=== PATIENT | male | born 2000 | race Two or more races ===

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

== ENCOUNTER 2023-08-27 22:05 | Inpatient (IN) | payer OTHER ==
[2023-08-27 22:53] LABS: BASOPHILS % (AUTO) 0.4 %; EOSINOPHILS # (AUTO) 0.2 10^3/uL (0.0-0.7); EOSINOPHILS % (AUTO) 1.8 %; HGB - HEMOGLOBIN 15.9 g/dL (14.0-18.0); LYMPHOCYTES # (AUTO) 2.6 10^3/uL (1.5-3.5); LYMPHOCYTES % (AUTO) 25.4 %; MEAN CORPUSCULAR HEMOGLOBIN 27.4 pg (27.0-31.0); MEAN CORPUSCULAR HGB CONC 32.4 g/dL (32.0-36.0); MEAN CORPUSCULAR VOLUME 84.5 fL (80.0-94.0); MEAN PLATELET VOLUME 10.1 fL (7.4-11.4); MONOCYTES # (AUTO) 1.1 10^3/uL (0.0-1.0); MONOCYTES % (AUTO) 10.7 %; NEUTROPHILS # (AUTO) 6.3 10^3/uL (1.5-6.6); PLT - PLATELET COUNT 253 10^3/uL (130-450); RED CELL DISTRIBUTION WIDTH 13.4 % (12.0-15.0); WHITE BLOOD COUNT 10.4 x10^3/uL (4.8-10.8)
--- NOTE | 2023-08-27 22:58 | XRAY Report ---
PROCEDURE: Chest 1V INDICATIONS: Chest pain TECHNIQUE: One view of the chest was acquired. COMPARISON: None. FINDINGS: Surgical changes and devices: None. Lungs and pleura: No pleural effusions or pneumothorax. Lungs are clear. Mediastinum: Mediastinal contours appear normal. Heart size is normal. Bones and chest wall: No suspicious bony lesions. Overlying soft tissues appear unremarkable. IMPRESSION: No acute cardiopulmonary process. Reviewed by: Fede Ho MD on 08/27/2023 10:57 PM PDT Approved by: Fede Ho MD on 08/27/2023 10:57 PM PDT Station ID: [id number]
[2023-08-27] MEDS: SODIUM CHLORIDE 0.9% 1,000 ML IV STA (22:59)
[2023-08-27] MEDS: diltiaZEM INJ 5 MG/ML VIAL IVP STA ×2 (23:03→23:36)
[2023-08-27] MEDS: diltiaZEM CD 120 MG CAPSULE PO STA (23:06)
[2023-08-27 23:23] LABS: TROPONIN I HIGH SENSITIVITY 7.5 ng/L (2.3-19.7)
[2023-08-28] LABS: ALBUMIN 4.4 g/dL (3.2-5.5); ALBUMIN/GLOBULIN RATIO 1.5 (1.0-2.2); BILIRUBIN,TOTAL 0.4 mg/dL (0.2-1.0); CALCIUM 9.8 mg/dL (8.5-10.3); CREATININE 0.9 mg/dL (0.6-1.3); TOTAL PROTEIN 7.3 g/dL (6.4-8.9)
[2023-08-28] MEDS ORDERED: METOPROLOL 5 MG/5 ML VIAL IVP ONE (00:31)
[2023-08-28] MEDS: METOPROLOL 5 MG/5 ML VIAL IVP STA (00:33)
[2023-08-28 01:29] LABS: INR 1.1 (0.8-1.2); PT - PROTHROMBIN TIME 11.6 secs (9.9-12.6)
[2023-08-28] MEDS ORDERED: diltiaZEM INJ 5 MG/ML VIAL ONE (01:47)
[2023-08-28] MEDS: APIXABAN 5 MG TABLET PO STA (01:51)
--- NOTE | 2023-08-28 02:01 | ED Physician Documentation ---
History of Present Illness - Stated complaint Stated Complaint: CHEST PRESSURE - Chief complaint Chief Complaint: Cardiac - History obtained from History obtained from: Patient - Additonal information Additional information: The patient is brought to the emergency department by his mom for chief complaint of shortness of breath for the last 3 days and palpitations today. The patient states that he thought perhaps he was just coming down with an illness when he felt the shortness of breath, but then today, he began to feel on and off as though his heart was racing. The patient thought it would just go away but after several hours, He decided to come to the ED. He denies any chest pain. He states he feels anxious right now but otherwise is okay. He states this is never happened to him before. He has no medical history whatsoever. He is not a smoker and does not use any drugs. No history of diabetes. No family history of cardiac issues at a young age. No other complaints at this time. PD PAST MEDICAL HISTORY - Past Medical History Past Medical History: No - Past Surgical History Past Surgical History: Yes HEENT: Tonsil/Adenoidectomy - Present Medications Home Medications: Ambulatory Orders Medication Instructions Recorded Confirmed diltiaZEM CD [Cardizem Cd] 240 mg PO DAILY #30 cap 08/29/23 - Allergies Allergies/Adverse Reactions: Allergies Allergy/AdvReac Type Severity Reaction Status Date / Time No Known Drug Allergies Allergy Verified 08/27/23 22:17 - Social History Does the pt smoke?: No Smoking Status: Never smoker Does the pt drink ETOH?: No Does the pt have substance abuse?: No - Immunizations Immunizations are current?: Yes - POLST Patient has POLST: No PD ED PE NORMAL - Vitals Vital signs reviewed: Yes - General General: Alert and oriented X 3, No acute distress, Well developed/nourished - HEENT HEENT: Atraumatic, EOMI, Moist mucous membranes - Neck Neck: Supple, no meningeal sign - Cardiac Cardiac: No murmur, Strong equal pulses, Other (Extremely tachycardic rate, irregularly irregular rhythm) - Respiratory Respiratory: No respiratory distress, Clear bilaterally - Abdomen Abdomen: Soft, Non tender, Non distended - Derm Derm: Normal color, Warm and dry, No rash - Extremities Extremities: No deformity, No edema, No calf tenderness / cord - Neuro Neuro: Other (Alert, grossly intact.) - Psych Psych: Normal mood, Normal affect Results - Vitals Vitals: Oxygen O2 Source Room air - EKG (time done) 2221 EKG releavant findings:: EKG personally interpreted by author of this note. Relevant findings are: Rate: Rate (enter#) (178) Rhythm: Atrial fibrillation [place]: Normal QRS: Normal Ischemia: Normal ST segments Compare to prior EKG: Old EKG unavailable Computer interpretation: Agree with computer - Labs Labs: Laboratory Tests 08/27/23 08/27/23 08/27/23 22:36 22:36 22:36 WBC 10.4 RBC 5.80 Hgb 15.9 Hct 49.0 MCV 84.5 MCH 27.4 MCHC 32.4 RDW 13.4 Plt Count 253 MPV 10.1 Neut # (Auto) 6.3 Lymph # (Auto) 2.6 [place] # (Auto) 1.1 H Eos # (Auto) 0.2 Baso # (Auto) 0.0 Absolute Nucleated RBC 0.00 Nucleated RBC % 0.0 PT INR Sodium 138 Potassium 4.0 Chloride 103 Carbon Dioxide 25 Anion Gap 10.0 BUN 10 Creatinine 0.9 Estimated GFR (MDRD) 106 Glucose 113 H Calcium 9.8 Total Bilirubin 0.4 AST 65 H ALT 179 H Alkaline Phosphatase 51 Troponin I High Sens 7.5 Total Protein 7.3 Albumin 4.4 Globulin 2.9 Albumin/Globulin Ratio 1.5 Lipase 12 TSH Hepatitis A IgM Ab Negative Hep Bs Antigen Negative Hep B Core IgM Ab Negative Hepatitis C Antibody Non Reactive Hepatitis C Interp Comment 08/28/23 08/28/23 01:14 01:14 WBC RBC Hgb Hct MCV MCH MCHC RDW Plt Count MPV Neut # (Auto) Lymph # (Auto) [place] # (Auto) Eos # (Auto) Baso # (Auto) Absolute Nucleated RBC Nucleated RBC % PT 11.6 INR 1.1 Sodium Potassium Chloride Carbon Dioxide Anion Gap BUN Creatinine Estimated GFR (MDRD) Glucose Calcium Total Bilirubin AST ALT Alkaline Phosphatase Troponin I High Sens Total Protein Albumin Globulin Albumin/Globulin Ratio Lipase TSH 2.49 Hepatitis A IgM Ab Hep Bs Antigen Hep B Core IgM Ab Hepatitis C Antibody Hepatitis C Interp PD Medical Decision Making - ED course Complexity details: reviewed results, re-evaluated patient, considered differential, d/w patient, d/w family, d/w workers compensation consultant (Dr. Lenz, cardiology, [facility]) ED course: The patient was immediately treated with Cardizem 25 mg IV which did bring his rate down into the 110's. Laboratory studies were unremarkable. EKG had shown atrial fibrillation with rapid ventricular response which was consistent with the monitor tracing which also had the appearance of A-fib with RVR. After an initial drop in heart rate, the patient's heart rate did begin to creep back up into the 150s to 160s. He was given a second dose of Cardizem 20 mg IV and had also been given an oral dose of 120 mg p.o. long-acting. The patient again had a drop in heart rate into the 110's but still did not convert to normal sinus rhythm. The patient was then given IV metoprolol 15 mg which still did not convert him to normal sinus rhythm. His heart rate did come down once again into the 130s but began to creep up again. I spoke with Dr. Enrique Lenz, survey crew chief at [facility]. The patient had had palpitations for the last several hours with fairly distinct onset but had also been having some vague shortness of breath for the last few days prior. He really had not had any other symptoms of illness and the Patient had been quite a bit harder to rate control than expected. Furthermore, he had not spontaneously converted despite slowing the rate down at least temporarily. In light of all this, Dr. Lenz recommended holding off on cardioversion and treating with medications to see if the patient would convert on his own or at least if we could rate control. He also recommended Eliquis. He stated that there is no reason to transfer the patient and that any concern over his age and why he is developed atrial fibrillation could be explored in follow-up with cardiology. He stated that otherwise, we should proceed as we would proceed with any older patient with A-fib with RVR. I discussed with the patient that and his mother that we would be starting a diltiazem drip and admitting to the hospital. He was agreeable to this plan. I spoke with Dr. Guerrero who is on-call for hospitalist service and she was agreeable to admission. - Critical Care Time(min): 40 Comments: Critical care time was necessary, secondary to high probability of imminent and life-threatening decline, secondary to extreme tachycardia in the setting of atrial fibrillation with rapid ventricular response, refractory to treatment. Time Includes: Direct patient care, Review records, Reassess patient, Document care, Coordinate care, Medical consult, Family consult for tx dec, See progress note Data interpretation: Labs, Pulse ox, CXR, Cardiac output, See progress note Departure - Departure Disposition: 66 [facility] DC/Xfer Clinical Impression: Atrial fibrillation with RVR Condition: Fair Discharge Date/Time: 08/28/23 02:50
[2023-08-28] MEDS: diltiaZEM INJ 125 MG in DEXTROSE 5% 100 ML IV STA (02:04)
--- NOTE | 2023-08-28 02:11 | HISTORY & PHYSICAL EXAMINATION ---
Chief Complaint - Chief Complaint Chief Complaint: Shortness of breath History of Present Illness - Admitted From Admitted From:: ER - History Obtained From Records Reviewed: Yes History obtained from: Pt, staff, chart Exam Limitations: Virtual exam - History of Present Illness HPI Comment/Other: H&P was conducted via video remotely, using Access Cart. Patient is in ID. Physician is in ID. No one is at bedside. 23 yo M with no PMH presented to the ER with c/o 1 day h/o Palpitations. Pt had Appendectomy 5 weeks ago; no complications. No abdo pain now; eating well. Pt has had cough, Shortness of breath x 1 day. No coryza, chest congestion, sputum, F/C. He said that it feels like a cold. Today, he began to have palpitations; it felt like his heart was beating out of his chest, so he came to the ER. No CP. No Dizziness. Pt has never had symptoms like this before. No known cardiac history in Family. In the ER, HR 220-137, AST 65, ALT 179 EKG: not in chart; ER Provider reports AFib with RVR at 178 bpm CXR:NAD Pt was given Diltiazem PO and IV, Metoprolol IV, rate came down but then increased again. Diltiazem drip ordered. ER Provider D/W [facility] Dr. Lenz at , who recommended rate control, anticoag for 3 wks, then f/u for cardioversion with Cardiology. Does not feel pt needs transfer, and can be treated like any a. fib with RVR. History - Past Medical History MRSA Hx?: No - Past Surgical History General: reports: Appendectomy HEENT: reports: Tonsil/Adenoidectomy - POLST Patient has POLST: No Meds/Allgy - Home Medications Home Medications: Ambulatory Orders Medication Instructions Recorded Confirmed No Known Home Medications 08/27/23 08/27/23 - Allergies Allergies/Adverse Reactions: Allergies Allergy/AdvReac Type Severity Reaction Status Date / Time No Known Drug Allergies Allergy Verified 08/27/23 22:17 Review of Systems - All Other Systems All Other Systems: reports: Reviewed and negative Exam - Vital Signs Reviewed Vital Signs: Yes Vital Signs: Vital Signs x48h Temp Pulse Resp BP Pulse Ox 08/28/23 01:42 155 H 18 111/52 L 99 08/28/23 01:27 139 H 22 114/66 97 08/28/23 01:12 135 H 18 111/59 L 99 08/28/23 01:05 140 H 18 108/85 H 96 08/28/23 01:00 137 H 20 110/64 96 08/28/23 00:32 140 H 14 119/64 99 08/28/23 00:23 140 H 18 120/79 100 08/28/23 00:07 121 H 20 129/83 H 98 08/27/23 23:52 114 H 16 114/82 H 96 08/27/23 23:47 122 H 14 119/71 96 08/27/23 23:41 115 H 14 147/84 H 97 08/27/23 23:35 169 H 22 128/94 H 99 08/27/23 23:22 107 H 17 114/71 99 08/27/23 23:17 96 16 109/61 97 08/27/23 23:11 117 H 16 115/58 L 97 08/27/23 22:41 160 H 22 118/82 H 98 08/27/23 22:17 36.5 C 62 16 128/89 H 100 - Physical Exam General Appearance: positive: No acute distress, Alert Eyes Bilateral: positive: EOMI, No scleral icterus ENT: positive: Other (Moist mucous membranes) Respiratory: positive: Other (Access cart stethoscope not working; per ER Provider: CTA B/L) Cardiovascular: positive: Other (Access cart stethoscope not working; per ER Provider: +tachycardic rate, irregularly irregular rhythm) Abdomen: positive: Other (per ER Provider: non-distended, NT, Soft) Extremities: positive: Other (per ER Provider: moves all extrem, no edema) Neurologic/Psychiatric: positive: Oriented x3, Mood/affect nml, Other (per ER Provider: NFD) Conclusion/Plan - Problem List (1) Atrial fibrillation with RVR Conclusion/Plan: Atrial Fibrillation with RVR Shortness of breath Palpitations -HR 220-137 -EKG: not in chart; ER Provider reports AFib with RVR at 178 bpm -CXR:NAD -Pt was given Diltiazem PO and IV, Metoprolol IV, rate came down but then increased again. Diltiazem drip ordered. -ER Provider D/W [facility] Dr. Lenz at , who recommended rate control, anticoag for 3 wks, then f/u for cardioversion with Cardiology. Does not feel pt needs transfer, and can be treated like any a. fib with RVR. -admit to ICU -continue Diltiazem drip titration -Eliquis 5 mg PO BID -telemetry -trend Trop -check TSH -Echo ordered -outpt F/u with [employer] Cough -Resp viral PCR test ordered -Brian Can PRN Elevated LFTs -AST 65, ALT 179 -acute Hepatitis panel ordered -U/S Liver ordered VTE Prophylaxis: on Eliquis Code Status: Full Code ~Jasmyn Guerrero MD Hospitalist - Lab Results Lab results reviewed: Yes Fish Bones: 08/27/23 22:36 08/27/23 22:36
[2023-08-28] MEDS ORDERED: SODIUM CHLORIDE FLUSH 0.9% 10 ML SYRINGE IVP PRN (02:13)
[2023-08-28] MEDS ORDERED: ONDANSETRON 4 MG/2 ML VIAL IVP PRN (02:13)
[2023-08-28] MEDS ORDERED: ONDANSETRON ODT 4 MG TABLET TL PRN (02:13)
[2023-08-28] MEDS ORDERED: ACETAMINOPHEN 325 MG TABLET PO PRN (02:13)
[2023-08-28] MEDS ORDERED: BENZONATATE 100 MG CAPSULE PO PRN (02:34)
[2023-08-28 03:31] LABS: BASOPHILS % (AUTO) 0.3 %; EOSINOPHILS # (AUTO) 0.1 10^3/uL (0.0-0.7); EOSINOPHILS % (AUTO) 1.3 %; HCT - HEMATOCRIT 47.8 % (42.0-52.0); LYMPHOCYTES # (AUTO) 2.5 10^3/uL (1.5-3.5); LYMPHOCYTES % (AUTO) 26.1 %; MEAN CORPUSCULAR HEMOGLOBIN 26.4 pg (27.0-31.0); MEAN CORPUSCULAR HGB CONC 31.4 g/dL (32.0-36.0); MEAN CORPUSCULAR VOLUME 84.2 fL (80.0-94.0); MEAN PLATELET VOLUME 10.3 fL (7.4-11.4); MONOCYTES # (AUTO) 0.8 10^3/uL (0.0-1.0); MONOCYTES % (AUTO) 8.6 %; NEUTROPHILS # (AUTO) 5.9 10^3/uL (1.5-6.6); PLT - PLATELET COUNT 273 10^3/uL (130-450); RED BLOOD COUNT 5.68 10^6/uL (4.70-6.10); RED CELL DISTRIBUTION WIDTH 13.4 % (12.0-15.0); WHITE BLOOD COUNT 9.4 x10^3/uL (4.8-10.8)
[2023-08-28 04:21] LABS: B. PARAPERTUSSIS- RESP PCR PAN NOT DETECTED; B. PERTUSSIS- RESP PCR PANEL NOT DETECTED; C. PNEUMONIAE- RESP PCR PANEL NOT DETECTED; CORONAVIRUS 229E-RESP PCR NOT DETECTED; CORONAVIRUS HKU1-RESP PCR NOT DETECTED; CORONAVIRUS NL63-RESP PCR NOT DETECTED; CORONAVIRUS OC43-RESP PCR NOT DETECTED; HUMAN METAPNEUMOVIRUS NOT DETECTED; INFLUENZA A- RESP PCR PANEL NOT DETECTED; INFLUENZA B - RESP PCR PANEL NOT DETECTED; M. PNEUMONIAE- RESP PCR PANEL NOT DETECTED; PARAINFLUENZA VIRUS 1 NOT DETECTED; PARAINFLUENZA VIRUS 2 NOT DETECTED; PARAINFLUENZA VIRUS 3 DETECTED; PARAINFLUENZA VIRUS 4 NOT DETECTED; RHINOVIRUS/ENTEROVIRUS NOT DETECTED; RSV- RESP PCR PANEL NOT DETECTED; SARS-CoV-2 -RESP PCR PANEL NOT DETECTED
[2023-08-28 04:31] LABS: ALBUMIN 3.9 g/dL (3.2-5.5); ALBUMIN/GLOBULIN RATIO 1.4 (1.0-2.2); BILIRUBIN,TOTAL 0.4 mg/dL (0.2-1.0); CALCIUM 9.2 mg/dL (8.5-10.3); CREATININE 0.8 mg/dL (0.6-1.3); POTASSIUM 3.9 mmol/L (3.5-4.5); TOTAL PROTEIN 6.6 g/dL (6.4-8.9)
[2023-08-28 05:03] LABS: THYROID STIMULATING HORMONE 2.94 uIU/mL (0.34-5.60)
[2023-08-28] MEDS: POTASSIUM CHLORIDE 20 MEQ TABLET PO ONE (05:35)
--- NOTE | 2023-08-28 08:00 | PROVIDER PROGRESS NOTE ---
Subjective - Prog Note Date Prog Note Date: 08/28/23 Prog Note Time: 08:00 Current Medications - Current Medications Current Medications: Acetaminophen (Acetaminophen 325 Mg Tablet) 650 mg PO Q4HR PRN PRN Reason: Pain 1 to 4, or Fever Apixaban (Apixaban 5 Mg Tablet) 5 mg PO BID MANUELA Benzonatate (Benzonatate 100 Mg Capsule) 100 mg PO Q8H PRN PRN Reason: Cough Diltiazem HCl 125 mg/ Dextrose 125 mls @ 10 mls/hr IV TITR STA; Protocol Stop: 08/28/23 14:00 Last Titration: 08/28/23 07:05 Dose: 5 mg/hr, 5 mls/hr Ondansetron HCl (Ondansetron Odt 4 Mg Tablet) 4 mg TL Q6HR PRN PRN Reason: Nausea / Vomiting Ondansetron HCl (Ondansetron 4 Mg/2 Ml Vial) 4 mg IVP Q6HR PRN PRN Reason: Nausea / Vomiting Sodium Chloride (Sodium Chloride Flush 0.9% 10 Ml Syringe) 10 ml IVP 0100,0900,1700 MANUELA Sodium Chloride (Sodium Chloride Flush 0.9% 10 Ml Syringe) 10 ml IVP PRN PRN PRN Reason: NEEDED PER PROVIDER ORDERS Objective - Vital Signs/Intake & Output Reviewed Vital Signs: Yes Vital Signs: Vital Signs x48h Temp Pulse Pulse Resp BP BP Pulse Ox 08/28/23 07:00 36.6 C 81 17 91/62 96 08/28/23 06:00 36.7 C 97 17 82/43 L 98 08/28/23 05:00 89 20 94/46 L 96 08/28/23 04:00 118 H 20 125/66 96 08/28/23 03:00 121 H 20 109/66 95 08/28/23 02:30 148 H 14 124/80 97 08/28/23 02:20 137 H 23 96 08/28/23 02:09 147 H 20 114/88 H 97 08/28/23 01:42 155 H 18 111/52 L 99 08/28/23 01:27 139 H 22 114/66 97 08/28/23 01:12 135 H 18 111/59 L 99 08/28/23 01:05 140 H 18 108/85 H 96 05/20/24 01:00 137 H 20 110/64 96 08/28/23 00:32 140 H 14 119/64 99 08/28/23 00:23 140 H 18 120/79 100 08/28/23 00:07 121 H 20 129/83 H 98 Intake & Output: Intake & Output 08/25/23 08/26/23 08/27/23 08/28/23 23:59 23:59 23:59 23:59 Intake Total 1185.333 Output Total 525 Balance -525 1185.333 - Lab Results Fish Bones: 08/28/23 03:15 08/28/23 03:15 Other Labs: Lab Results x24hrs 08/28/23 08/28/23 08/28/23 Range/Units 03:15 03:15 03:15 WBC 9.4 (4.8-10.8) x10^3/uL RBC 5.68 (4.70-6.10) 10^6/uL Hgb 15.0 (14.0-18.0) g/dL Hct 47.8 (42.0-52.0) % MCV 84.2 (80.0-94.0) fL MCH 26.4 L (27.0-31.0) pg MCHC 31.4 L (32.0-36.0) g/dL RDW 13.4 (12.0-15.0) % Plt Count 273 (130-450) 10^3/uL MPV 10.3 (7.4-11.4) fL Neut # (Auto) 5.9 (1.5-6.6) 10^3/uL Lymph # (Auto) 2.5 (1.5-3.5) 10^3/uL [place] # (Auto) 0.8 (0.0-1.0) 10^3/uL Eos # (Auto) 0.1 (0.0-0.7) 10^3/uL Baso # (Auto) 0.0 (0.0-0.1) 10^3/uL Absolute Nucleated RBC 0.00 x10^3/uL Nucleated RBC % 0.0 /100WBC PT (9.9-12.6) secs INR (0.8-1.2) Sodium 137 (135-145) mmol/L Potassium 3.9 (3.5-4.5) mmol/L Chloride 105 (101-111) mmol/L Carbon Dioxide 24 (21-32) mmol/L Anion Gap 8.0 (6-13) BUN 9 (6-20) mg/dL Creatinine 0.8 (0.6-1.3) mg/dL Estimated GFR (MDRD) 121 (>89) Glucose 100 (74-104) mg/dL Calcium 9.2 (8.5-10.3) mg/dL Magnesium 2.0 (1.7-2.3) mg/dL Total Bilirubin 0.4 (0.2-1.0) mg/dL AST 52 H (10-42) IU/L ALT 157 H (10-60) IU/L Alkaline Phosphatase 45 (42-121) IU/L Troponin I High Sens 6.8 (2.3-19.7) ng/L Total Protein 6.6 (6.4-8.9) g/dL Albumin 3.9 (3.2-5.5) g/dL Globulin 2.7 (2.1-4.2) g/dL Albumin/Globulin Ratio 1.4 (1.0-2.2) Lipase (11-82) U/L TSH 2.94 (0.34-5.60) uIU/mL Nasal Adenovirus (PCR) Nasal B. parapertussis DNA (PCR) Nasal Coronavir 229E PCR Nasal Coronavir HKU1 PCR Nasal Coronavir NL63 PCR Nasal Coronavir OC43 PCR Nasal Enterovir/Rhinovir PCR Nasal Influenza B PCR Nasal Influenza A PCR Nasal Parainfluen 1 PCR Nasal Parainfluen 2 PCR Nasal Parainfluen 3 PCR Nasal Parainfluen 4 PCR Nasal RSV (PCR) Nasal Screen MRSA (PCR) (NEGATIVE) Nasal B.pertussis DNA PCR Nasal C.pneumoniae (PCR) Chandan Human Metapneumo PCR Nasal M.pneumoniae (PCR) Nasal SARS-CoV-2 (PCR) 08/28/23 08/28/23 08/28/23 Range/Units 03:00 02:24 01:14 WBC (4.8-10.8) x10^3/uL RBC (4.70-6.10) 10^6/uL Hgb (14.0-18.0) g/dL Hct (42.0-52.0) % MCV (80.0-94.0) fL MCH (27.0-31.0) pg MCHC (32.0-36.0) g/dL RDW (12.0-15.0) % Plt Count (130-450) 10^3/uL MPV (7.4-11.4) fL Neut # (Auto) (1.5-6.6) 10^3/uL Lymph # (Auto) (1.5-3.5) 10^3/uL [place] # (Auto) (0.0-1.0) 10^3/uL Eos # (Auto) (0.0-0.7) 10^3/uL Baso # (Auto) (0.0-0.1) 10^3/uL Absolute Nucleated RBC x10^3/uL Nucleated RBC % /100WBC PT (9.9-12.6) secs INR (0.8-1.2) Sodium (135-145) mmol/L Potassium (3.5-4.5) mmol/L Chloride (101-111) mmol/L Carbon Dioxide (21-32) mmol/L Anion Gap (6-13) BUN (6-20) mg/dL Creatinine (0.6-1.3) mg/dL Estimated GFR (MDRD) (>89) Glucose (74-104) mg/dL Calcium (8.5-10.3) mg/dL Magnesium (1.7-2.3) mg/dL Total Bilirubin (0.2-1.0) mg/dL AST (10-42) IU/L ALT (10-60) IU/L Alkaline Phosphatase (42-121) IU/L Troponin I High Sens (2.3-19.7) ng/L Total Protein (6.4-8.9) g/dL Albumin (3.2-5.5) g/dL Globulin (2.1-4.2) g/dL Albumin/Globulin Ratio (1.0-2.2) Lipase (11-82) U/L TSH 2.49 (0.34-5.60) uIU/mL Nasal Adenovirus (PCR) NOT DETECTED Nasal B. parapertussis DNA (PCR) NOT DETECTED Nasal Coronavir 229E PCR NOT DETECTED Nasal Coronavir HKU1 PCR NOT DETECTED Nasal Coronavir NL63 PCR NOT DETECTED Nasal Coronavir OC43 PCR NOT DETECTED Nasal Enterovir/Rhinovir PCR NOT DETECTED Nasal Influenza B PCR NOT DETECTED Nasal Influenza A PCR NOT DETECTED Nasal Parainfluen 1 PCR NOT DETECTED Nasal Parainfluen 2 PCR NOT DETECTED Nasal Parainfluen 3 PCR DETECTED A Nasal Parainfluen 4 PCR NOT DETECTED Nasal RSV (PCR) NOT DETECTED Nasal Screen MRSA (PCR) NEGATIVE (NEGATIVE) Nasal B.pertussis DNA PCR NOT DETECTED Nasal C.pneumoniae (PCR) NOT DETECTED Chandan Human Metapneumo PCR NOT DETECTED Nasal M.pneumoniae (PCR) NOT DETECTED Nasal SARS-CoV-2 (PCR) NOT DETECTED 08/28/23 08/27/23 08/27/23 Range/Units 01:14 22:36 22:36 WBC 10.4 (4.8-10.8) x10^3/uL RBC 5.80 (4.70-6.10) 10^6/uL Hgb 15.9 (14.0-18.0) g/dL Hct 49.0 (42.0-52.0) % MCV 84.5 (80.0-94.0) fL MCH 27.4 (27.0-31.0) pg MCHC 32.4 (32.0-36.0) g/dL RDW 13.4 (12.0-15.0) % Plt Count 253 (130-450) 10^3/uL MPV 10.1 (7.4-11.4) fL Neut # (Auto) 6.3 (1.5-6.6) 10^3/uL Lymph # (Auto) 2.6 (1.5-3.5) 10^3/uL [place] # (Auto) 1.1 H (0.0-1.0) 10^3/uL Eos # (Auto) 0.2 (0.0-0.7) 10^3/uL Baso # (Auto) 0.0 (0.0-0.1) 10^3/uL Absolute Nucleated RBC 0.00 x10^3/uL Nucleated RBC % 0.0 /100WBC PT 11.6 (9.9-12.6) secs INR 1.1 (0.8-1.2) Sodium 138 (135-145) mmol/L Potassium 4.0 (3.5-4.5) mmol/L Chloride 103 (101-111) mmol/L Carbon Dioxide 25 (21-32) mmol/L Anion Gap 10.0 (6-13) BUN 10 (6-20) mg/dL Creatinine 0.9 (0.6-1.3) mg/dL Estimated GFR (MDRD) 106 (>89) Glucose 113 H (74-104) mg/dL Calcium 9.8 (8.5-10.3) mg/dL Magnesium (1.7-2.3) mg/dL Total Bilirubin 0.4 (0.2-1.0) mg/dL AST 65 H (10-42) IU/L ALT 179 H (10-60) IU/L Alkaline Phosphatase 51 (42-121) IU/L Troponin I High Sens 7.5 (2.3-19.7) ng/L Total Protein 7.3 (6.4-8.9) g/dL Albumin 4.4 (3.2-5.5) g/dL Globulin 2.9 (2.1-4.2) g/dL Albumin/Globulin Ratio 1.5 (1.0-2.2) Lipase 12 (11-82) U/L TSH (0.34-5.60) uIU/mL Nasal Adenovirus (PCR) Nasal B. parapertussis DNA (PCR) Nasal Coronavir 229E PCR Nasal Coronavir HKU1 PCR Nasal Coronavir NL63 PCR Nasal Coronavir OC43 PCR Nasal Enterovir/Rhinovir PCR Nasal Influenza B PCR Nasal Influenza A PCR Nasal Parainfluen 1 PCR Nasal Parainfluen 2 PCR Nasal Parainfluen 3 PCR Nasal Parainfluen 4 PCR Nasal RSV (PCR) Nasal Screen MRSA (PCR) (NEGATIVE) Nasal B.pertussis DNA PCR Nasal C.pneumoniae (PCR) Chandan Human Metapneumo PCR Nasal M.pneumoniae (PCR) Nasal SARS-CoV-2 (PCR) ABX Reporting Has patient been on IV antibiotics over the past 48 hours?: No Sepsis Event Note (H) - Evaluation Current Stage of Sepsis: Ruled out
--- NOTE | 2023-08-28 08:01 | PROVIDER PROGRESS NOTE ---
Subjective - Prog Note Date Prog Note Date: 08/28/23 Prog Note Time: 08:01 - Subjective Subjective: Patient remains on Cardizem drip since admission though the rate had to be decreased due to mild hypotension. The patient himself feels improved this morn ing with less palpitations. Yesterday he also had dyspnea which has resolved at this point. He denies having any chest pain, pleurisy, orthopnea, PND. Has a rare occasional cough that is nonproductive and has some mild rhinorrhea, with his viral panel returned positive for parainfluenza. He denies any alcohol use or illicit drug use. No history of previous episodes of palpitations and no family history of these issues as well. Current Medications - Current Medications Current Medications: Acetaminophen (Acetaminophen 325 Mg Tablet) 650 mg PO Q4HR PRN PRN Reason: Pain 1 to 4, or Fever Apixaban (Apixaban 5 Mg Tablet) 5 mg PO BID MANUELA Benzonatate (Benzonatate 100 Mg Capsule) 100 mg PO Q8H PRN PRN Reason: Cough Diltiazem HCl 125 mg/ Dextrose 125 mls @ 10 mls/hr IV TITR STA; Protocol Stop: 08/28/23 14:00 Last Titration: 08/28/23 07:05 Dose: 5 mg/hr, 5 mls/hr Ondansetron HCl (Ondansetron Odt 4 Mg Tablet) 4 mg TL Q6HR PRN PRN Reason: Nausea / Vomiting Ondansetron HCl (Ondansetron 4 Mg/2 Ml Vial) 4 mg IVP Q6HR PRN PRN Reason: Nausea / Vomiting Sodium Chloride (Sodium Chloride Flush 0.9% 10 Ml Syringe) 10 ml IVP 0100,0900,1700 MANUELA Sodium Chloride (Sodium Chloride Flush 0.9% 10 Ml Syringe) 10 ml IVP PRN PRN PRN Reason: NEEDED PER PROVIDER ORDERS Objective - Vital Signs/Intake & Output Reviewed Vital Signs: Yes Vital Signs: Vital Signs Temp Pulse Resp BP Pulse Ox 08/28/23 07:00 36.6 C 81 17 91/62 96 08/28/23 06:00 36.7 C 97 17 82/43 L 98 08/28/23 05:00 89 20 94/46 L 96 Intake & Output: Intake & Output 05/17/08/26/23 08/27/23 08/28/23 23:59 23:59 23:59 23:59 Intake Total 1185.333 Output Total 525 Balance -525 1185.333 - Objective General Appearance: positive: No acute distress, Alert, Mild distress, Other (Obese) Eyes Bilateral: positive: Normal inspection, PERRL, EOMI ENT: positive: ENT inspection nml, No signs of dehydration Neck: positive: Nml inspection, Thyroid nml, No JVD, Trachea midline Respiratory: positive: No respiratory distress, Breath sounds nml. negative: Wheezes, Rales, Rhonchi Cardiovascular: positive: No murmur, No gallop, Irregularly irregular, Tachycardia Peripheral Pulses: 2+ Dorsalis pedis (R), 2+ Dorsalis pedis (L) Abdomen: positive: Non-tender, No organomegaly, Nml bowel sounds, Other (Obese abdomen, but no obvious distension) Skin: positive: Color nml, No rash, Warm, Dry Extremities: positive: Non-tender, Nml appearance, No pedal edema Neurologic/Psychiatric: positive: Oriented x3, CN's nml (2-12), Motor nml - Lab Results Fish Bones: 08/28/23 03:15 08/28/23 03:15 Other Labs: Lab Results x24hrs 08/28/23 08/28/23 08/28/23 Range/Units 03:15 03:15 03:15 WBC 9.4 (4.8-10.8) x10^3/uL RBC 5.68 (4.70-6.10) 10^6/uL Hgb 15.0 (14.0-18.0) g/dL Hct 47.8 (42.0-52.0) % MCV 84.2 (80.0-94.0) fL MCH 26.4 L (27.0-31.0) pg MCHC 31.4 L (32.0-36.0) g/dL RDW 13.4 (12.0-15.0) % Plt Count 273 (130-450) 10^3/uL MPV 10.3 (7.4-11.4) fL Neut # (Auto) 5.9 (1.5-6.6) 10^3/uL Lymph # (Auto) 2.5 (1.5-3.5) 10^3/uL [place] # (Auto) 0.8 (0.0-1.0) 10^3/uL Eos # (Auto) 0.1 (0.0-0.7) 10^3/uL Baso # (Auto) 0.0 (0.0-0.1) 10^3/uL Absolute Nucleated RBC 0.00 x10^3/uL Nucleated RBC % 0.0 /100WBC PT (9.9-12.6) secs INR (0.8-1.2) Sodium 137 (135-145) mmol/L Potassium 3.9 (3.5-4.5) mmol/L Chloride 105 (101-111) mmol/L Carbon Dioxide 24 (21-32) mmol/L Anion Gap 8.0 (6-13) BUN 9 (6-20) mg/dL Creatinine 0.8 (0.6-1.3) mg/dL Estimated GFR (MDRD) 121 (>89) Glucose 100 (74-104) mg/dL Calcium 9.2 (8.5-10.3) mg/dL Magnesium 2.0 (1.7-2.3) mg/dL Total Bilirubin 0.4 (0.2-1.0) mg/dL AST 52 H (10-42) IU/L ALT 157 H (10-60) IU/L Alkaline Phosphatase 45 (42-121) IU/L Troponin I High Sens 6.8 (2.3-19.7) ng/L Total Protein 6.6 (6.4-8.9) g/dL Albumin 3.9 (3.2-5.5) g/dL Globulin 2.7 (2.1-4.2) g/dL Albumin/Globulin Ratio 1.4 (1.0-2.2) Lipase (11-82) U/L TSH 2.94 (0.34-5.60) uIU/mL Nasal Adenovirus (PCR) Nasal B. parapertussis DNA (PCR) Nasal Coronavir 229E PCR Nasal Coronavir HKU1 PCR Nasal Coronavir NL63 PCR Nasal Coronavir OC43 PCR Nasal Enterovir/Rhinovir PCR Nasal Influenza B PCR Nasal Influenza A PCR Nasal Parainfluen 1 PCR Nasal Parainfluen 2 PCR Nasal Parainfluen 3 PCR Nasal Parainfluen 4 PCR Nasal RSV (PCR) Nasal Screen MRSA (PCR) (NEGATIVE) Nasal B.pertussis DNA PCR Nasal C.pneumoniae (PCR) Chandan Human Metapneumo PCR Nasal M.pneumoniae (PCR) Nasal SARS-CoV-2 (PCR) 08/28/23 08/28/23 08/28/23 Range/Units 03:00 02:24 01:14 WBC (4.8-10.8) x10^3/uL RBC (4.70-6.10) 10^6/uL Hgb (14.0-18.0) g/dL Hct (42.0-52.0) % MCV (80.0-94.0) fL MCH (27.0-31.0) pg MCHC (32.0-36.0) g/dL RDW (12.0-15.0) % Plt Count (130-450) 10^3/uL MPV (7.4-11.4) fL Neut # (Auto) (1.5-6.6) 10^3/uL Lymph # (Auto) (1.5-3.5) 10^3/uL [place] # (Auto) (0.0-1.0) 10^3/uL Eos # (Auto) (0.0-0.7) 10^3/uL Baso # (Auto) (0.0-0.1) 10^3/uL Absolute Nucleated RBC x10^3/uL Nucleated RBC % /100WBC PT (9.9-12.6) secs INR (0.8-1.2) Sodium (135-145) mmol/L Potassium (3.5-4.5) mmol/L Chloride (101-111) mmol/L Carbon Dioxide (21-32) mmol/L Anion Gap (6-13) BUN (6-20) mg/dL Creatinine (0.6-1.3) mg/dL Estimated GFR (MDRD) (>89) Glucose (74-104) mg/dL Calcium (8.5-10.3) mg/dL Magnesium (1.7-2.3) mg/dL Total Bilirubin (0.2-1.0) mg/dL AST (10-42) IU/L ALT (10-60) IU/L Alkaline Phosphatase (42-121) IU/L Troponin I High Sens (2.3-19.7) ng/L Total Protein (6.4-8.9) g/dL Albumin (3.2-5.5) g/dL Globulin (2.1-4.2) g/dL Albumin/Globulin Ratio (1.0-2.2) Lipase (11-82) U/L TSH 2.49 (0.34-5.60) uIU/mL Nasal Adenovirus (PCR) NOT DETECTED Nasal B. parapertussis DNA (PCR) NOT DETECTED Nasal Coronavir 229E PCR NOT DETECTED Nasal Coronavir HKU1 PCR NOT DETECTED Nasal Coronavir NL63 PCR NOT DETECTED Nasal Coronavir OC43 PCR NOT DETECTED Nasal Enterovir/Rhinovir PCR NOT DETECTED Nasal Influenza B PCR NOT DETECTED Nasal Influenza A PCR NOT DETECTED Nasal Parainfluen 1 PCR NOT DETECTED Nasal Parainfluen 2 PCR NOT DETECTED Nasal Parainfluen 3 PCR DETECTED A Nasal Parainfluen 4 PCR NOT DETECTED Nasal RSV (PCR) NOT DETECTED Nasal Screen MRSA (PCR) NEGATIVE (NEGATIVE) Nasal B.pertussis DNA PCR NOT DETECTED Nasal C.pneumoniae (PCR) NOT DETECTED Chandan Human Metapneumo PCR NOT DETECTED Nasal M.pneumoniae (PCR) NOT DETECTED Nasal SARS-CoV-2 (PCR) NOT DETECTED 08/28/23 08/27/23 08/27/23 Range/Units 01:14 22:36 22:36 WBC 10.4 (4.8-10.8) x10^3/uL RBC 5.80 (4.70-6.10) 10^6/uL Hgb 15.9 (14.0-18.0) g/dL Hct 49.0 (42.0-52.0) % MCV 84.5 (80.0-94.0) fL MCH 27.4 (27.0-31.0) pg MCHC 32.4 (32.0-36.0) g/dL RDW 13.4 (12.0-15.0) % Plt Count 253 (130-450) 10^3/uL MPV 10.1 (7.4-11.4) fL Neut # (Auto) 6.3 (1.5-6.6) 10^3/uL Lymph # (Auto) 2.6 (1.5-3.5) 10^3/uL [place] # (Auto) 1.1 H (0.0-1.0) 10^3/uL Eos # (Auto) 0.2 (0.0-0.7) 10^3/uL Baso # (Auto) 0.0 (0.0-0.1) 10^3/uL Absolute Nucleated RBC 0.00 x10^3/uL Nucleated RBC % 0.0 /100WBC PT 11.6 (9.9-12.6) secs INR 1.1 (0.8-1.2) Sodium 138 (135-145) mmol/L Potassium 4.0 (3.5-4.5) mmol/L Chloride 103 (101-111) mmol/L Carbon Dioxide 25 (21-32) mmol/L Anion Gap 10.0 (6-13) BUN 10 (6-20) mg/dL Creatinine 0.9 (0.6-1.3) mg/dL Estimated GFR (MDRD) 106 (>89) Glucose 113 H (74-104) mg/dL Calcium 9.8 (8.5-10.3) mg/dL Magnesium (1.7-2.3) mg/dL Total Bilirubin 0.4 (0.2-1.0) mg/dL AST 65 H (10-42) IU/L ALT 179 H (10-60) IU/L Alkaline Phosphatase 51 (42-121) IU/L Troponin I High Sens 7.5 (2.3-19.7) ng/L Total Protein 7.3 (6.4-8.9) g/dL Albumin 4.4 (3.2-5.5) g/dL Globulin 2.9 (2.1-4.2) g/dL Albumin/Globulin Ratio 1.5 (1.0-2.2) Lipase 12 (11-82) U/L TSH (0.34-5.60) uIU/mL Nasal Adenovirus (PCR) Nasal B. parapertussis DNA (PCR) Nasal Coronavir 229E PCR Nasal Coronavir HKU1 PCR Nasal Coronavir NL63 PCR Nasal Coronavir OC43 PCR Nasal Enterovir/Rhinovir PCR Nasal Influenza B PCR Nasal Influenza A PCR Nasal Parainfluen 1 PCR Nasal Parainfluen 2 PCR Nasal Parainfluen 3 PCR Nasal Parainfluen 4 PCR Nasal RSV (PCR) Nasal Screen MRSA (PCR) (NEGATIVE) Nasal B.pertussis DNA PCR Nasal C.pneumoniae (PCR) Chandan Human Metapneumo PCR Nasal M.pneumoniae (PCR) Nasal SARS-CoV-2 (PCR) - Diagnostic Imaging Diagnostic Imaging Results: positive: Final report reviewed Diagnostic Imaging Comments: CXR (08/27/23): No acute cardiopulmonary process. - Other Results/Comments Other Results/Comments: EKG (08/28/23): per my read - Atrial fibrillation, heart rate 92, normal axis and intervals, no pathologic Q waves subtle J-point elevation in V2 through V4, no EKG evidence for accessory pathway, no ischemic ST or T wave changes. Sepsis Event Note (H) - Evaluation Current Stage of Sepsis: Ruled out Assessment/Plan - Problem List (1) Atrial fibrillation with RVR Impression: This represents new onset atrial fibrillation and he became symptomatic around 5:30 PM on 08/27/2023. He had palpitations and dyspnea at that time. When he came to the emergency department he was found to have atrial fibrillation with RVR with rates of 130 -220. -ER provider discussed with screening tech Dr. Lenz at , who recommended rate control, anticoagulation for 3 weeks, then follow-up for cardioversion with cardiology as an outpatient. Did not feel that the patient needed to transfer and that this can be treated like any other atrial fibrillation with RVR. -Currently no obvious cause for his atrial fibrillation as his electrolytes are normal and TSH is unremarkable. No family history of dysrhythmias. -TTE pending to evaluate for underlying structural heart issues. -EKG shows no obvious accessory pathway. -Given his obesity he may need to be screened for ANTOINE as an outpatient. -Will initiate oral Cardizem CD 240 mg now and try to wean Cardizem drip. Can increase dose of oral Cardizem if needed. -Continue Eliquis 5 mg p.o. twice daily. -Will need follow-up with cardiology as an outpatient. (2) Elevated LFTs Impression: Unclear etiology though could have a component of fatty liver disease. -Acute hepatitis panel ordered. -Follow-up abdominal/liver ultrasound. (3) Parainfluenza infection Impression: He had mild viral URI symptoms with his respiratory panel being positive for parainfluenza. -Continue droplet precautions. -Supportive measures at this time. (4) Severe obesity (BMI >= 40) Impression: Encourage weight loss and may need outpatient ANTOINE screening.
[2023-08-28] MEDS: diltiaZEM CD 240 MG CAPSULE PO SCH (09:01)
[2023-08-28] MEDS: SODIUM CHLORIDE FLUSH 0.9% 10 ML SYRINGE IVP SCH (09:01)
--- NOTE | 2023-08-28 09:17 | PHARMACY PROGRESS NOTE ---
- Best Possible Medication History Admit Date and Time: 08/28/23 0214 Processed by: Pharmacy Medications reviewed in ED?: Yes Medication History completed: Yes Patient Interview: Completed Secondary Source(s): Insurance records As the person ultimately responsible for medication therapy, providers are able to order a medication from an existing home medication list in [facility] via the "Reconcile Routine" prior to Confirmation of that medication by network support administrator. Such practice is discouraged except when the physician, in their clinical judgment, deems that a medical need exists for a medication without regard to previous use.
[2023-08-28] MEDS: APIXABAN 5 MG TABLET PO SCH (12:50)
[2023-08-28 13:22] LABS: AMPHETAMINE SCREEN,URINE NEGATIVE (NEGATIVE); BARBITURATE SCREEN,UR NEGATIVE (NEGATIVE); BENZODIAZEPINES SCREEN, URINE NEGATIVE (NEGATIVE); BUPRENORPHINE SCREEN, URINE NEGATIVE (NEGATIVE); COCAINE SCREEN URINE NEGATIVE (NEGATIVE); METHADONE SCREEN, URINE NEGATIVE (NEGATIVE); METHAMPHETAMINES SCREEN, URINE NEGATIVE (NEGATIVE); OPIATE SCREEN, URINE NEGATIVE (NEGATIVE); OXYCODONE SCREEN, URINE NEGATIVE (NEGATIVE); THC CANNABINOID SCREEN, URINE NEGATIVE (NEGATIVE); TRICYCLIC ANTIDEPRESSANT,URINE NEGATIVE (NEGATIVE)
--- NOTE | 2023-08-28 20:43 | Ultrasound Report ---
PROCEDURE: Abdomen Limited INDICATIONS: Elevated LFTs TECHNIQUE: Real-time focused scanning was performed of the abdomen, with image documentation. COMPARISONS: None. FINDINGS: Liver: Heterogeneous, hyperechoic hepatic parenchyma. Liver is at the upper limits of normal size me asuring 18.4 cm in length. The margin is smooth. There is appropriate directional flow in the main po rtal vein. No focal liver lesions seen. Gallbladder: No gallstones, sludge, wall thickening or pericholecystic edema. Biliary ducts: Intrahepatic bile ducts are non-dilated. Extrahepatic bile duct caliber measures 2.5 mm. Normal is 6-7 mm or less in diameter, or 10 mm or less post-cholecystectomy. Pancreas: The majority of the pancreas is not well seen due to bowel gas. Right kidney: Normal in size and echotexture. Right kidney measures 12.9 cm long. No hydronephrosis or nephrolithiasis. No solid masses. No complex renal cystic lesions which require follow-up. IVC: Intrahepatic inferior vena cava is patent. Miscellaneous: No free abdominal fluid. IMPRESSION: Heterogeneous, hyperechoic liver can be seen in hepatic steatosis or other intrinsic liver disease. Suboptimal visualization of the pancreas. No evidence of cholelithiasis or choledocholithiasis. Reviewed by: Meghana Roberts MD on 08/28/2023 8:38 PM PDT Approved by: Meghana Roberts MD on 08/28/2023 8:38 PM PDT Station ID: [id number]
[2023-08-29 05:31] LABS: BASOPHILS % (AUTO) 0.2 %; EOSINOPHILS # (AUTO) 0.1 10^3/uL (0.0-0.7); EOSINOPHILS % (AUTO) 0.6 %; HCT - HEMATOCRIT 48.3 % (42.0-52.0); HGB - HEMOGLOBIN 15.1 g/dL (14.0-18.0); LYMPHOCYTES # (AUTO) 1.1 10^3/uL (1.5-3.5); MEAN CORPUSCULAR HEMOGLOBIN 26.4 pg (27.0-31.0); MEAN CORPUSCULAR HGB CONC 31.3 g/dL (32.0-36.0); MEAN CORPUSCULAR VOLUME 84.3 fL (80.0-94.0); MEAN PLATELET VOLUME 10.6 fL (7.4-11.4); MONOCYTES # (AUTO) 1.1 10^3/uL (0.0-1.0); MONOCYTES % (AUTO) 13.7 %; NEUTROPHILS % (AUTO) 71.8 %; PLT - PLATELET COUNT 251 10^3/uL (130-450); RED BLOOD COUNT 5.73 10^6/uL (4.70-6.10); RED CELL DISTRIBUTION WIDTH 13.9 % (12.0-15.0); WHITE BLOOD COUNT 8.3 x10^3/uL (4.8-10.8)
[2023-08-29 05:49] LABS: ALBUMIN 4.2 g/dL (3.2-5.5); ALBUMIN/GLOBULIN RATIO 1.4 (1.0-2.2); BILIRUBIN,TOTAL 0.4 mg/dL (0.2-1.0); CALCIUM 9.4 mg/dL (8.5-10.3); CREATININE 0.9 mg/dL (0.6-1.3); MAGNESIUM 1.8 mg/dL (1.7-2.3); PHOSPHORUS 3.4 mg/dL (2.5-5.0); POTASSIUM 3.9 mmol/L (3.5-4.5); TOTAL PROTEIN 7.1 g/dL (6.4-8.9)
[2023-08-29 06:04] LABS: CALCIUM, IONIZED 1.18 mmol/L (1.15-1.33); VBG PH 7.409 (7.31-7.41)
[2023-08-29 06:15] LABS: HBsAG SCREEN Negative (Negative); HCV AB Non Reactive (Non Reactive); HEPATITIS B CORE IGM AB Negative (Negative)
[2023-08-29] MEDS: MAGNESIUM OXIDE 400 MG TABLET PO ONE (06:49)
[2023-08-29] MEDS: POTASSIUM CHLORIDE 20 MEQ TABLET PO ONE (08:51)
--- NOTE | 2023-08-29 14:06 | Discharge Plan ---
Discharge Plan Problem Reviewed?: Yes Disposition: Home, Self Care Condition: Fair Prescriptions: diltiaZEM CD [Cardizem Cd] 240 mg PO DAILY #30 cap Apixaban [Eliquis] 5 mg PO BID #60 tab Diet: Regular Activity Restrictions: Activity as Tolerated Shower Restrictions: No Driving Restrictions: No Health Concerns: you presented to the hospital with a sensation of fluttering in your chest. In the emergency room we found you to have a new abnormality of rhythm in your heart electrical conducting system. Your heart is made up of muscle, and valves. What makes it contract and expand to pump blood is an electrical conducting system. The abnormality is in the electrical conducting system and it is called atrial fibrillation. We did an ultrasound of your heart called an echocardiogram and it is normal. Sometimes people have electrolyte abnormalities because of diarrhea, nausea, or vomiting. So we checked blood work to make sure that your thyroid, potassium, magnesium were normal. They were. We also checked to make sure you were not having a heart attack. That was negative. We were able to slow down your heart rate. And on its own, your heart converted to a regular sinus rhythm. The utilization review nurse we consulted over the phone asked that we put you on a blood thinner for 3 weeks. And as such we are sending you home with Cardizem to slow down your heart rate, and Eliquis to thin your blood for the next 3 weeks. Plan of Treatment: Please see your primary care provider in follow-up in the next 2 weeks. They need to refer you to see a utilization review nurse for follow-up. I have prescribed the Cardizem and the Eliquis. If you need any further medicines, please call your primary care provider office. Care Goals: To have your heart rate go back to a regular rhythm and stay that way Assessment: patient is alert and oriented to person, place, time and situation. Able to follow instructions No Smoking: If you smoke, Please STOP! Call for help.
[2023-08-29 14:50] VITALS: BP 115/75; O2SAT 98
--- NOTE | 2023-08-29 18:57 | DISCHARGE SUMMARY ---
Discharge Summary Admit Date: 08/28/23 Discharge Date: 08/29/23 Discharging Provider: Naa Carlson MD Code Status: Attempt Resuscitation Condition at Discharge: Fair Discharge Disposition: 01 Home, Self Care - DIAGNOSES Discharge Diagnoses with Status of Each Condition: new onset atrial fibrillation with RVR Shortness of breath Palpitations Elevated liver function studies - HPI History of Present Illness: 23 yo M with no PMH presented to the ER with c/o 1 day h/o Palpitations. Pt had Appendectomy 5 weeks ago; no complications. No abdo pain now; eating well. Pt has had cough, Shortness of breath x 1 day. No coryza, chest congestion, sputum, F/C. He said that it feels like a cold. Today, he began to have palpitations; it felt like his heart was beating out of his chest, so he came to the ER. No CP. No Dizziness. Pt has never had symptoms like this before. No known cardiac history in Family. In the ER, HR 220-137, AST 65, ALT 179 EKG: not in chart; ER Provider reports AFib with RVR at 178 bpm CXR:NAD Pt was given Diltiazem PO and IV, Metoprolol IV, rate came down but then increased again. Diltiazem drip ordered. ER Provider D/W [employer] Paral[employer] Dr. Lenz at , who recommended rate control, anticoag for 3 wks, then f/u for cardioversion with Cardiology. Does not feel pt needs transfer, and can be treated like any a. fib with RVR. - Past Medical History MRSA Hx?: No - Past Surgical History General: reports: Appendectomy HEENT: reports: Tonsil/Adenoidectomy - ALLERGIES Allergies/Adverse Reactions: Allergies Allergy/AdvReac Type Severity Reaction Status Date / Time No Known Drug Allergies Allergy Verified 08/27/23 22:17 - MEDICATIONS Home Medications: Ambulatory Orders Medication Instructions Recorded Confirmed diltiaZEM CD [Cardizem Cd] 240 mg PO DAILY #30 cap 08/29/23 - LABS Result Diagrams: 08/29/23 04:27 08/29/23 04:27 - SEPSIS Current Stage of Sepsis: Ruled out
[2023-08-30 02:08] LABS: HBsAG SCREEN Negative (Negative); HCV AB Non Reactive (Non Reactive); HEPATITIS B CORE IGM AB Negative (Negative)
== END 2023-08-29 14:48 | disposition home or self-care (01) | DRG 309 ==
LOC: ED 22:05 → ICU 08-28 02:14
PROVIDERS: ADMIT Internal Medicine; ATTEND Specialist
DX: I48.91 Unspecified atrial fibrillation (principal); Z68.42 Body mass index [BMI] 45.0-49.9, adult; R94.5 Abnormal results of liver function studies; I95.9 Hypotension, unspecified; J06.9 Acute upper respiratory infection, unspecified; B97.89 Other viral agents as the cause of diseases classified elsewhere; E66.01 Morbid (severe) obesity due to excess calories; R07.89 Other chest pain; Z20.818 Contact with and (suspected) exposure to other bacterial communicable diseases; Z20.822 Contact with and (suspected) exposure to COVID-19; Z20.828 Contact with and (suspected) exposure to other viral communicable diseases
CPT/HCPCS: 36415; 71045; 76705; 80048; 80053; 80074; 80306; 82330; 83690; 83735; 84100; 84443; 84484; 85025; 85610; 87150; 87633; 93005; 93307; A9270